=== PATIENT | male | born 1990 | race Caucasian/White ===

== ENCOUNTER 2022-10-17 13:47 | Emergency (ER) | payer BC, MEDICAID ==
[~2022-10-17] VITALS: Ht 170.2 cm; Wt 82.0 kg
[2022-10-17 13:54] VITALS: TEMP 98; O2SAT 97
[2022-10-17] MEDS ORDERED: MAGNESIUM/ALUMINUM HYDROXIDE/SIMETHICONE 30ML UDC PO ONE (14:15)
[2022-10-17 14:29] LABS: HEMATOCRIT. 47.3 % (42.0-52.0); HEMOGLOBIN. 16.6 g/dL (14.0-18.0); MEAN CORPUSCULAR HEMOGLOBIN 30.1 pg (28.0-32.0); MEAN CORPUSCULAR HGB CONC 35.1 g/dL (31.0-37.0); MEAN CORPUSCULAR VOLUME 85.9 fL (80.0-94.0); PLATELET 186 x1000/uL (130-400); RED CELL DISTRIBUTION WIDTH 13.6 % (11.6-14.6); WHITE BLOOD COUNT 3.5 x1000/uL (4.5-11.0)
[2022-10-17 14:30] LABS: DIFFERENTIAL COMMENT 1
[2022-10-17 14:35] LABS: CHLORIDE 97 mEq/L (98-107); INDEX HEMOLYSI 1 (1-3); INDEX ICTERIC 1 (1-4); INDEX LIPEMIC 1 (1-3); POTASSIUM 4.1 mEq/L (3.5-5.1); SODIUM 136 mEq/L (136-145)
[2022-10-17 14:43] LABS: ALANINE AMINOTRANSFERASE 219 IU/L (13-61); ALBUMIN 4.6 g/dL (3.4-5.0); ASPARTATE AMINOTRANSFERASE 134 IU/L (15-37); BILIRUBIN TOTAL 0.5 mg/dL (0.1-1.0); CALCIUM 9.7 mg/dL (8.5-10.1); CARBON DIOXIDE 27 mEq/L (21-32); CREATININE 0.5 mg/dL (0.6-1.3); ETHANOL BLOOD 16 mg/dL (-10); GLUCOSE 211 mg/dL (70-105); PROTEIN TOTAL 8.4 g/dL (6.0-8.3); UREA NITROGEN BLOOD 9 mg/dL (7-21)
[2022-10-17 15:02] VITALS: BP 156/105; PULSE 101; RESP 16
[2022-10-17] MEDS ORDERED: L25 MT (15:04)
[2022-10-17 15:40] LABS: PLATELET ESTIMATE NORMAL
== END 2022-10-17 15:57 | disposition home or self-care (01) ==
LOC: ER 13:47
DX: F10.10 Alcohol abuse, uncomplicated (principal); R07.89 Other chest pain; Y90.0 Blood alcohol level of less than 20 mg/100 ml
CPT/HCPCS: 36415; 71045; 80053; 80320; 85025; 93005; 99285; G0480

== ENCOUNTER 2023-04-04 00:34 | Emergency (ER) | payer MEDICAID ==
[~2023-04-04] VITALS: Ht 170.2 cm; Wt 77.0 kg
[~2023-04-04 00:34] MED LIST: L25 MT
[2023-04-04 00:59] VITALS: BP 157/97; PULSE 96; RESP 18; TEMP 98.3; O2SAT 98
== END 2023-04-04 05:36 | disposition left against medical advice (07) ==
LOC: ER 01:33
DX: M65.051 Abscess of tendon sheath, right thigh (principal); Z53.21 Procedure and treatment not carried out due to patient leaving prior to being seen by health care provider
CPT/HCPCS: 99281